=== PATIENT | female | born 1950 | race Caucasian/White ===

== ENCOUNTER 2024-06-20 12:31 | Emergency (ER) | payer OTHER ==
--- NOTE | 2024-06-20 13:50 | RAD REPORT ---
EXAMINATION: ONE VIEW CHEST XR CLINICAL INDICATION: ABDOMINAL DISTENTION TECHNIQUE: Frontal chest projection is submitted. Examination is limited by patient positioning and t echnique. COMPARISON: No prior exam. FINDINGS: The lungs are diffusely emphysematous but grossly clear. The heart is upper limit of normal in size. No displaced fractures identified. IMPRESSION: COPD without an acute process suspected.
--- NOTE | 2024-06-20 13:52 | RAD REPORT ---
EXAMINATION: CT ABDOMEN AND PELVIS WITHOUT CONTRAST CLINICAL INDICATION: ABDOMINAL DISTENTION TECHNIQUE: CT abdomen and pelvis was performed, without IV contrast, as per department protocol. Axia l, sagittal and coronal reconstructions were obtained. One or more of the following dose reduction techniques were used: Automated exposure control, adjustment of the mA and kV according to the patien t size, and iterative reconstruction. Unless otherwise specified, incidental findings do not require dedicated imaging follow-up. COMPARISON: No prior exam. FINDINGS: The lack of intravenous contrast limits the sensitivity of this exam for evaluation of solid visceral organs, vascular structures, and retroperitoneum. LOWER CHEST: The visualized lung bases are clear. LIVER:Normal in size and contour. No focal lesion. Cholelithiasis. 2-3 mm calculus is seen distal com mon bile duct which appears mildly dilated compatible with choledocholithiasis. SPLEEN: Normal size. No focal lesion. PANCREAS: No mass, ductal dilation, or rhoda-pancreatic fluid. ADRENALS: Normal; no mass. KIDNEYS AND URETERS: Normal size and contour. No hydronephrosis. URINARY BLADDER: Normal contour. GASTROINTESTINAL TRACT: No evidence of bowel obstruction, significant free fluid, free air or abscess . APPENDIX: Normal appendix. LYMPH NODES: No lymphadenopathy. MUSCULOSKELETAL: Moderate lower lumbar degenerative spondylosis. ADDITIONAL FINDINGS: Trace pelvic free fluid. IMPRESSION: Cholelithiasis is noted with choledocholithiasis.
[2024-06-20 15:30] LABS: Absolute Basophils 0.1 K/uL (0-0.5); Absolute Lymphocytes (CBC) 1.4 K/uL (0.7-4.9); Absolute Monocytes 0.4 K/uL (0.1-1.3); Absolute Neutrophil 4.1 K/uL (1.8-8.0); Eosinophils % 0.5 % (0-4.4); Hematocrit 42.8 % (36.0-45.0); Hemoglobin 14.7 g/dL (12.0-15.0); Lymphocytes % 23.9 % (15.3-44.8); MCH 28.7 pg (27.0-35.0); MCHC 34.3 g/dL (32.0-36.0); MCV 83.7 fL (80-100); Monocytes % 6.5 % (3.3-12.3); Neutrophils % 68.1 % (41.7-73.7); Nucleated Red Blood Cells % 0.1 % (0-0); Platelets 188 thou/uL (152-406); RBC Red Blood Cell Count 5.11 M/uL (3.86-4.86); Red Cell Distribution Width 14.2 % (12.1-15.2)
[2024-06-20 15:49] LABS: Specific Gravity 1.015 (1.005-1.030); Sqamous Epithelial <5 /HPF (None Seen); Urine Bacteria None Seen /HPF (<20); Urine Bilirubin NEGATIVE (Negative); Urine Blood Negative (Negative); Urine Clarity Clear (Clear); Urine Color Light-Yellow (Yellow); Urine Crystals Unidentified Few /HPF (None Seen); Urine Culture Reflex Order NOT NEEDED; Urine Glucose NEGATIVE (Negative); Urine Ketones 1+ (Negative); Urine Microscopic Reflex YN ORDER UMIC; Urine Nitrite NEGATIVE (Negative); Urine Protein TRACE (Negative); Urine RBC <5 /HPF (None Seen); Urine Urobilinogen Normal (Normal); Urine WBC <5 /HPF (<5)
[2024-06-20] MEDS ORDERED: NA CHLORIDE 0.9% 1,000 ML ONE (15:51)
[2024-06-20] MEDS ORDERED: FAMOTIDINE 20 MG/2 ML VIAL IV ONE (15:51)
[2024-06-20] MEDS ORDERED: ONDANSETRON 4 MG/2 ML VIAL ONE (15:51)
[2024-06-20 15:52] LABS: AST/SGOT 15 U/L (15-37); Anion Gap 9.5 mEq/L (5.0-15.0); BUN Blood Urea Nitrogen 9 mg/dL (7-18); Bicarbonate 28 mEq/L (21-32); Glomerular Filtration Rate 70 ml/min (=/>90); Glucose Level 93 mg/dL (74-106); Potassium 3.5 mEq/L (3.5-5.1); Sodium Level 139 mEq/L (136-145)
[2024-06-20] MEDS ORDERED: NA CHLORIDE 0.9% 100 ML ONE (15:52)
[2024-06-20] MEDS ORDERED: PIPERACIL/TAZO 3.375 GM VIAL IV ONE (15:52)
[2024-06-20 15:53] LABS: Albumin 3.7 g/dL (3.4-5.0); Albumin/Globulin Ratio 0.9 (1.1-1.8); Alkaline Phosphatase 80 U/L (45-117); Bilirubin Direct 0.2 mg/dL (0-0.2); Bilirubin Indirect, Calculated 0.7 mg/dL (0.2-0.8); Bilirubin Total 0.9 mg/dL (0.2-1.0); Globulin 4.1 g/dL (2.3-3.5); Lipase 27 U/L (13-75); Magnesium 2.3 mg/dL (1.6-2.4); NT PRO-BNP 1649 pg/mL (<125); Protein, Total 7.8 g/dL (6.4-8.2); Troponin High Sensitivity 10.9 pg/mL (<58.9)
[2024-06-20 15:55] LABS: ALT/SGPT < 14 U/L (13-56)
--- NOTE | 2024-06-20 16:37 | RAD REPORT ---
EXAM: Right upper quadrant ultrasound. CLINICAL HISTORY: ABD PAIN COMPARISON: None. FINDINGS: Gallbladder: Cholelithiasis. Bile ducts: Biliary tree is mildly dilated. Common bile duct measures 11 mm. Limited imaging of the liver shows no concerning finding. IMPRESSION: Cholelithiasis. Dilated common bile duct up to 11 mm likely indicates choledocholithiasis.
--- NOTE | 2024-06-20 17:14 | EDPHYS ---
Physician Documentation [facility] Name: Dasia Benito Age: 74 yrs Sex: Female : 1950 Arrival Date: 06/20/2024 Time: 12:31 Bed 3 Private MD: ED Physician Juno Pepper HPI: 06/20 15:30 This 74 yrs old Female presents to ER via Ambulatory with complaints of chloe Vomiting. 15:30 The patient presents to the emergency department with nausea, vomiting, abdominal pain, chloe of the epigastric area. Onset: The symptoms/episode began/occurred just prior to arrival. Possible causes: unknown. The symptoms are aggravated by food , The symptoms are alleviated by nothing. remaining still. Associated signs and symptoms: Pertinent positives: abdominal pain, nausea, vomiting. Severity of symptoms: At their worst the symptoms were moderate in the emergency department the symptoms are unchanged. The patient has not experienced similar symptoms in the past. Historical: - Allergies: 13:03 Codeine; jl7 - Home Meds: 13:03 None [Active]; jl7 - PMHx: 13:03 None; jl7 - PSHx: 13:03 None; jl7 - Immunization history:: Adult Immunizations unknown. - Infectious Disease History:: Denies. - Social history:: Smoking status: Patient denies any tobacco usage or history of. ROS: 15:31 Constitutional: Negative for fever, chills, and weight loss, Eyes: Negative for injury, chloe pain, redness, and discharge, ENT: Negative for injury, pain, and discharge, Neck: Negative for injury, pain, and swelling, Cardiovascular: Negative for chest pain, palpitations, and edema, Respiratory: Negative for shortness of breath, cough, wheezing, and pleuritic chest pain, Back: Negative for injury and pain, : Negative for injury, bleeding, discharge, and swelling, MS/Extremity: Negative for injury and deformity, Skin: Negative for injury, rash, and discoloration, Neuro: Negative for headache, weakness, numbness, tingling, and seizure, Psych: Negative for depression, anxiety, suicide ideation, homicidal ideation, and hallucinations, Allergy/Immunology: Negative for hives, rash, and allergies, Endocrine: Negative for neck swelling, polydipsia, polyuria, polyphagia, and marked weight changes, Hematologic/Lymphatic: Negative for swollen nodes, abnormal bleeding, and unusual bruising, 15:31 Abdomen/GI: Positive for abdominal pain, nausea and vomiting, of the epigastric area, right upper quadrant and left upper quadrant, Exam: 15:31 Constitutional: This is a well developed, well nourished patient who is awake, alert, chloe and in no acute distress. Head/Face: Normocephalic, atraumatic. Eyes: Pupils equal round and reactive to light, extra-ocular motions intact. Lids and lashes normal. Conjunctiva and sclera are non-icteric and not injected. Cornea within normal limits. Periorbital areas with no swelling, redness, or edema. ENT: Nares patent. No nasal discharge, no septal abnormalities noted. Tympanic membranes are normal and external auditory canals are clear. Oropharynx with no redness, swelling, or masses, exudates, or evidence of obstruction, uvula midline. Mucous membranes moist. Neck: Trachea midline, no thyromegaly or masses palpated, and no cervical lymphadenopathy. Supple, full range of motion without nuchal rigidity, or vertebral point tenderness. No Meningismus. Chest/axilla: Normal chest wall appearance and motion. Nontender with no deformity. No lesions are appreciated. Cardiovascular: Regular rate and rhythm with a normal S1 and S2. No gallops, murmurs, or rubs. Normal PMI, no JVD. No pulse deficits. Respiratory: Lungs have equal breath sounds bilaterally, clear to auscultation and percussion. No rales, rhonchi or wheezes noted. No increased work of breathing, no retractions or nasal flaring. Back: No spinal tenderness. No costovertebral tenderness. Full range of motion. Skin: Warm, dry with normal turgor. Normal color with no rashes, no lesions, and no evidence of cellulitis. MS/ Extremity: Pulses equal, no cyanosis. Neurovascular intact. Full, normal range of motion., bilateral aka Neuro: Awake and alert, GCS 15, oriented to person, place, time, and situation. Cranial nerves II-XII grossly intact. Motor strength 5/5 in all extremities. Sensory grossly intact. Cerebellar exam normal. Normal gait. Psych: Awake, alert, with orientation to person, place and time. Behavior, mood, and affect are within normal limits. 15:31 Abdomen/GI: Inspection: abdomen appears normal, Bowel sounds: normal, Palpation: mild abdominal tenderness, moderate abdominal tenderness, in the epigastric area, Liver: no appreciated palpable abnormalities, Hernia: not appreciated, 15:31 Musculoskeletal/extremity: Circulation is intact in all extremities. Sensation intact. Compartment Syndrome exam of affected extremity: is normal. Weight bearing: able to fully bear weight, without difficulty, DVT Exam: No signs of deep vein thrombosis. no pain, no swelling, no tenderness, negative Homans' sign noted on exam, no appreciated bluish discoloration, no erythema, no increased warmth, 16:35 ECG was reviewed by the Attending Physician. [facility] Vital Signs: 13:02 BP 170 / 73; Pulse 61; Resp 17; Temp 97.8; Pulse Ox 100% ; Weight 54.43 kg; Height 5 jl7 ft. 9 in. ; Pain 0/10; 16:15 BP 190 / 85; Pulse 66; Resp 16; Pulse Ox 100% on R/A; dd2 17:00 BP 185 / 85; Pulse 72; Resp 16; Pulse Ox 100% on R/A; dd2 17:45 BP 187 / 98; Pulse 73; Resp 17; Pulse Ox 100% on R/A; dd2 18:30 BP 185 / 94; Pulse 72; Resp 16; Pulse Ox 100% on R/A; dd2 13:02 Body Mass Index 17.72 (54.43 kg, 175.26 cm) [facility] 13:02 Pain Scale: Adult 7 Kike Coma Score: 15:31 Eye Response: spontaneous(4). Motor Response: obeys commands(6). Verbal Response: chloe oriented(5). Total: 15. MDM: 12:45 Medical Screening Exam initiated [facility] 15:32 Differential diagnosis: Nonspecific abd pain, gastritis, cholecystitis, pancreatitis, chloe appendicitis, diverticulitis, viral gastroenteritis, gastroenteritis. Data reviewed: vital signs, nurses notes, lab test result(s), EKG, radiologic studies, CT scan, plain films. Consideration of Admission/Observation Patient was admitted/placed on observation. Escalation of care including admission/observation considered. I considered the following discharge prescriptions or medication management in the emergency department Medications were administered in the Emergency Department. See MAR. Independent interpretation of the following test(s) in the Emergency Department EKG: See my EKG interpretation above. Test considered but Not performed: MRI: NO MRCP. Historians other than the Patient: Spouse/Significant Other: SPOUSE WELL INFORMED. Care significantly affected by the following chronic conditions: NONE. Counseling: I had a detailed discussion with the patient and/or guardian regarding the historical points, exam findings, and any diagnostic results supporting the discharge/admit diagnosis, lab results, radiology results, the need to transfer to another facility, for higher level of care, [facility] does not immediately have the required specialist. 06/20 12:47 Order name: Basic Metabolic Panel; Complete Time: 16:02 [facility] 06/20 12:47 Order name: CBC with Diff; Complete Time: 16:02 [facility] 06/20 12:47 Order name: LFT's; Complete Time: 16:02 [facility] 06/20 12:47 Order name: Magnesium; Complete Time: 16:02 [facility] 06/20 12:47 Order name: NT PRO-BNP; Complete Time: 16:02 [facility] 06/20 12:47 Order name: PT-INR; Complete Time: 17:52 [facility] 06/20 12:47 Order name: Troponin HS; Complete Time: 16:02 [facility] 06/20 12:47 Order name: Lipase; Complete Time: 16:02 [facility] 06/20 12:47 Order name: Urinalysis w/ reflexes; Complete Time: 16:02 [facility] 06/20 12:47 Order name: XRAY Chest (1 view); Complete Time: 14:45 [facility] 06/20 12:47 Order name: CT Abd/Pelvis - Without Contrast; Complete Time: 14:45 [facility] 06/20 15:34 Order name: US Abdomen Limited; Complete Time: 17:11 [facility] 06/20 12:47 Order name: EKG; Complete Time: 12:48 [facility] 06/20 12:47 Order name: Cardiac monitoring; Complete Time: 16:06 [facility] 06/20 12:47 Order name: EKG - Nurse/Tech; Complete Time: 16:06 [facility] 06/20 12:47 Order name: IV Saline Lock; Complete Time: 15:24 [facility] 06/20 12:47 Order name: Labs collected and sent; Complete Time: 15:24 [facility] 06/20 12:47 Order name: O2 Per Protocol; Complete Time: 15:37 [facility] 06/20 12:47 Order name: O2 Sat Monitoring; Complete Time: 15:37 [facility] EC:35 Rate is 62 beats/min. Rhythm is regular. QRS Amidon is Normal. OH interval is normal. QRS chloe interval is normal. QT interval is prolonged at 527 msec. No Q waves. T waves are Normal. No ST changes noted. Clinical impression: NSR w/ Non-specific ST/T Changes and No evidence of ischemia. Interpreted by me. Reviewed by me. Administered Medications: 16:00 Drug: Famotidine IVP 20 mg IVP once; dilute with 10 mL 0.9% NaCl; give over 2 minutes aa5 Route: IVP; Site: left antecubital; 16:10 Follow up: Response: No adverse reaction aa5 16:00 Drug: Ondansetron IVP 8 mg IVP once; over 2 minutes Route: IVP; Site: left antecubital; aa5 16:10 Follow up: Response: No adverse reaction aa5 16:00 Drug: Piperacillin-Tazobactam IVPB 3.375 grams IVPB once over 60 mins; (mix in NS 100 aa5 mL) Route: IVPB; Infused Over: 60 mins; Site: left antecubital; 17:00 Follow up: Response: No adverse reaction; IV Status: Completed infusion; IV Intake: aa5 100ml 16:00 Drug: NS 0.9% IV 1000 ml IV at 1 bolus Per protocol; to be given as a bolus over 60 aa5 minutes Route: IV; Rate: 1 bolus; Site: left antecubital; 17:00 Follow up: IV Status: Completed infusion; IV Intake: 1000ml aa5 16:18 Not Given (Physician Discretion): ns 0.9% 1000 ml IV at 1000 ml once; to be given as a aa5 bolus over 60 minutes Disposition Summary: 06/20/24 17:13 Transfer Ordered Notes: Transfer Location: [facility] chloe Reason: Higher level of care chloe Condition: Fair chloe Problem: new chloe Symptoms: have improved chloe Accepting Physician: TO [facility](06/20/24 19:19) dd2 Diagnosis - Epigastric abdominal tenderness chloe - Calculus of bile duct without cholangitis or cholecystitis with obstruction chloe - Vomiting chloe Forms: - Medication Reconciliation Form chloe - SBAR form chloe Signatures: Dispatcher [employer] EDMS Juno Pepper MD MD cha Calderon, Audri RN RN aa5 Ede Abdalla RN RN jl7 ALIN VARGAS RN RN dd2 Corrections: (The following items were deleted from the chart) 15:34 15:34 Abdomen Limited+US.LUZ ordered. EDMS EDMS 19:19 17:13 TO [facility]ona dd2
--- NOTE | 2024-06-20 17:14 | ER ---
Nurse's Notes [facility] Name: Dasia Benito Age: 74 yrs Sex: Female : 1950 Arrival Date: 06/20/2024 Time: 12:31 Bed 3 Private MD: Diagnosis: Epigastric abdominal tenderness;Calculus of bile duct without cholangitis or cholecystitis with obstruction;Vomiting Presentation: 06/20 13:02 Chief complaint: Patient states: vomiting since last night, denies abdominal pain. jl7 Coronavirus screen: At this time, the client does not indicate any symptoms associated with coronavirus-19. Ebola Screen: No symptoms or risks identified at this time. Initial Sepsis Screen: Does the patient meet any 2 criteria? No. Patient's initial sepsis screen is negative. Does the patient have a suspected source of infection? No. Patient's initial sepsis screen is negative. Risk Assessment: Do you want to hurt yourself or someone else? Patient reports no desire to harm self or others. Onset of symptoms was June 19, 2024. 13:02 Method Of Arrival: Ambulatory jl7 13:02 Acuity: ADRIENNE 3 jl7 Triage Assessment: 13:03 General: Appears in no apparent distress. uncomfortable, Behavior is calm, cooperative, jl7 appropriate for age. Pain: Denies pain. GI: Reports nausea, vomiting. Historical: - Allergies: 13:03 Codeine; jl7 - Home Meds: 13:03 None [Active]; jl7 - PMHx: 13:03 None; jl7 - PSHx: 13:03 None; jl7 - Immunization history:: Adult Immunizations unknown. - Infectious Disease History:: Denies. - Social history:: Smoking status: Patient denies any tobacco usage or history of. Screenin:00 [facility] ED Fall Risk Assessment (Adult) History of falling in the last 3 months, aa5 including since admission No falls in past 3 months (0 pts) Confusion or Disorientation No (0 pts) Intoxicated or Sedated No (0 pts) Impaired Gait No (0 pts) Mobility Assist Device Used No (0 pt) Altered Elimination No (0 pt) Score/Fall Risk Level 0 - 2 = Low Risk Oriented to surroundings, Maintained a safe environment, Educated pt \T\ family on fall prevention, incl call for assistance when getting out of bed, Assessed \T\ reinforced patient's understanding of fall precautions. Abuse screen: Denies threats or abuse. Nutritional screening: No deficits noted. Tuberculosis screening: No symptoms or risk factors identified. Assessment: 16:00 General: Appears comfortable, Behavior is calm, cooperative. Pain: Denies pain. Neuro: aa5 Level of Consciousness is awake, alert, obeys commands, Oriented to person, place, time, situation. Cardiovascular: Heart tones S1 S2 present Rhythm is regular. Respiratory: Airway is patent Respiratory effort is even, unlabored, Respiratory pattern is regular, symmetrical. GI: Abdomen is flat, non-distended, Bowel sounds present X 4 quads. Abd is soft X 4 quads Abdomen is tender to palpation in right upper quadrant and left upper quadrant Reports nausea, vomiting. : No signs and/or symptoms were reported regarding the genitourinary system. EENT: No signs and/or symptoms were reported regarding the EENT system. Derm: Skin is pink, warm \T\ dry. Musculoskeletal: Range of motion: intact in all extremities. 18:00 Reassessment: Patient is alert, oriented x 3, equal unlabored respirations, skin aa5 warm/dry/pink. Patient states feeling better. 18:00 Reassessment: Awaiting transfer, pt aware. . aa5 18:40 Reassessment: REPORT CALLED TO RINA JERRY [place]. dd2 Vital Signs: 13:02 BP 170 / 73; Pulse 61; Resp 17; Temp 97.8; Pulse Ox 100% ; Weight 54.43 kg; Height 5 jl7 ft. 9 in. ; Pain 0/10; 16:15 BP 190 / 85; Pulse 66; Resp 16; Pulse Ox 100% on R/A; dd2 17:00 BP 185 / 85; Pulse 72; Resp 16; Pulse Ox 100% on R/A; dd2 17:45 BP 187 / 98; Pulse 73; Resp 17; Pulse Ox 100% on R/A; dd2 18:30 BP 185 / 94; Pulse 72; Resp 16; Pulse Ox 100% on R/A; dd2 13:02 Body Mass Index 17.72 (54.43 kg, 175.26 cm) jl7 13:02 Pain Scale: Adult jl7 Kike Coma Score: 15:31 Eye Response: spontaneous(4). Motor Response: obeys commands(6). Verbal Response: chloe oriented(5). Total: 15. ED Course: 12:37 Patient arrived in ED. im 12:44 Juno Mc MD is Attending Physician. chloe 13:03 Triage completed. jl7 13:03 Arm band placed on right wrist. jl7 13:24 CT Abd/Pelvis - Without Contrast In Process Unspecified. EDMS 13:30 XRAY Chest (1 view) In Process Unspecified. EDMS 15:24 Inserted saline lock: 20 gauge in left antecubital area, using aseptic technique. Blood ss collected. Flushed with 10 mL NS. 15:37 Ramila Latham, RN is Primary Nurse. aa5 16:00 Patient has correct armband on for positive identification. Bed in low position. Call aa5 light in reach. Side rails up X2. Adult w/ patient. Client placed on continuous cardiac and pulse oximetry monitoring. NIBP monitoring applied. forms analyst on. Pulse ox on. NIBP on. 16:33 US Abdomen Limited In Process Unspecified. EDMS 17:14 [facility] CONTACTED TO INITIATE PATIENT TRANSFER. ty 17:17 NO ANSWER CALL DISCONNECTED. ty 17:18 [facility] CONTACTED TO INITIATE PATIENT TRANSFER. ty 17:23 GALINDO ADVISED OF HIGH VOLUME AND WILL BE PLACED ON WAIT LIST. ty 17:30 ALEXANDRO SPOKE WITH PATIENT AND WANTS TO GO TO [facility] OR [facility]. ty 17:31 DR. MC CONTACTING [facility] IN REGARDS TO PATIENT TRANSFER. ty 17:49 RODRIGO FROM [facility] CALLED BACK FOR DOC 2 DOC. ty 18:06 [id number] PAPER GIVEN TO RN. ty 18:39 [facility] CALLED FOR PATIENT TRANSPORT. ty 18:45 No provider procedures requiring assistance completed. aa5 19:18 Provided Education on: TRANSFER INSTRUCTIONS. dd2 19:18 Patient transferred, IV remains in place. dd2 Administered Medications: 16:00 Drug: Famotidine IVP 20 mg IVP once; dilute with 10 mL 0.9% NaCl; give over 2 minutes aa5 Route: IVP; Site: left antecubital; 16:10 Follow up: Response: No adverse reaction aa5 16:00 Drug: Ondansetron IVP 8 mg IVP once; over 2 minutes Route: IVP; Site: left antecubital; aa5 16:10 Follow up: Response: No adverse reaction aa5 16:00 Drug: Piperacillin-Tazobactam IVPB 3.375 grams IVPB once over 60 mins; (mix in NS 100 aa5 mL) Route: IVPB; Infused Over: 60 mins; Site: left antecubital; 17:00 Follow up: Response: No adverse reaction; IV Status: Completed infusion; IV Intake: aa5 100ml 16:00 Drug: NS 0.9% IV 1000 ml IV at 1 bolus Per protocol; to be given as a bolus over 60 aa5 minutes Route: IV; Rate: 1 bolus; Site: left antecubital; 17:00 Follow up: IV Status: Completed infusion; IV Intake: 1000ml aa5 16:18 Not Given (Physician Discretion): ns 0.9% 1000 ml IV at 1000 ml once; to be given as a aa5 bolus over 60 minutes Medication: 18:44 VIS not applicable for this client. aa5 Intake: 17:00 IV: 1000ml; Total: 1000ml. aa5 17:00 IV: 100ml; Total: 1100ml. aa5 Outcome: 17:13 ER care complete, transfer ordered by MD. corona 19:18 Transferred by ground EMS to [facility], Transfer form completed. dd2 19:18 Condition: stable 19:18 Instructed on the need for transfer, Demonstrated understanding of instructions, 19:19 Patient left the ED. dd2 Signatures: Dispatcher [employer] Juno Campbell MD MD cha Calderon, Audri, RN RN aa5 Inga Ramirez RN RN ss Leal, Jahala, RN RN jl7 Mary Chanel Tylor ty DAVIS, DIANA RN RN dd2 Corrections: (The following items were deleted from the chart) 16:18 16:17 Ondansetron IVP 8 mg IVP in left antecubital aa5 aa5
[2024-06-20 17:33] LABS: PT Prothrombin Time 12.7 SECONDS (10-13.0); Protime INR 1.12
[2024-06-20 19:37] VITALS: TEMP 97.8; O2SAT 100
[2024-06-20 19:47] VITALS: BP 185/94
== END 2024-06-20 19:19 | disposition short-term general hospital (02) ==
LOC: ER 12:31
DX: K80.50 Calculus of bile duct without cholangitis or cholecystitis without obstruction (principal); R11.10 Vomiting, unspecified
CPT/HCPCS: 96365; 85025; 81001; 80048; 36415; 83735; 85610; 80076; 84484; 83690; 83880; 74176; 71045; 76705; 96375; 99285; J2543; J2405; J7030; 93005